=== PATIENT | male | born 1950 | race Caucasian/White ===

== ENCOUNTER → 2020-06-17 13:44 | Outpatient (CLI) | payer MEDICARE, MEDICAID, SELFPAY ==
--- NOTE | 2020-06-17 14:00 | CT_ITS ---
STUDY: CT CHEST WITH CONTRAST REASON FOR EXAM: Male, 69 years old. ABN CXR/NICOTINE DEPENDENCE RADIATION DOSAGE (If Supplied By Facility): CTDIvol = ( 8.93 ) mGy, DLP = ( 182.50 ) mGycm TECHNIQUE: Transaxial imaging was performed following intravenous administration of IV 100mL Isovue-300. Multiplanar coronal and sagittal images were reformatted. Individualized dose optimization techniques were used for this CT. COMPARISON: None. FINDINGS: Hyperinflation. Diffuse emphysematous changes with centrilobular emphysema. There is evidence of fibrocalcific scarring at the right lung apex. There is evidence of densely calcified pleural plaques of the left pleura. There are calcifications of the coronary arteries. Normal mediastinum. Normal hilar regions. Normal enhanced pulmonary arteries. There is atherosclerotic calcification of the aortic arch with tortuosity and elongation of the aortic arch and descending thoracic aorta. There is dilatation of the proximal descending thoracic aorta just distal to the arch with a transverse dimension of 3.9 cm. There are degenerative changes of the thoracic spine. There is no demonstrated abnormality of the visualized upper abdomen. CT/Chest WITH Contrast IMPRESSION: Hyperinflation and emphysematous changes with fibrocalcific scarring at the right lung apex. Left-sided calcified pleural plaques. Electronically Signed: Blade Roca MD at 15:07 EDT , Service support ,
[2020-06-17 14:06] LABS: CREATININE FINGERSTICK 0.8 mg/dL (0.70-1.30); EGFR FINGERSTICK > 60.0000 mL/min (>60)
== END ==
PROVIDERS: PCP Nurse Practitioner Adult Health; Referring Provider Nurse Practitioner Adult Health; Visit Provider Nurse Practitioner Adult Health
DX: R93.89 Abnormal findings on diagnostic imaging of other specified body structures (principal); F17.200 Nicotine dependence, unspecified, uncomplicated
CPT/HCPCS: 71260; Q9967; A4216

== ENCOUNTER → 2020-07-03 13:14 | Outpatient (CLI) | payer MEDICARE, MEDICAID, SELFPAY ==
[2020-06-25 10:40] VITALS: BMI 17.0
--- NOTE | 2020-07-03 13:15 | ECHOD_ITS ---
Reason For Study: ABN EKG Procedure This was a 2D Doppler, Color Flow transthoracic echocardiogram. The study was technically difficult. Due to COPD and body habitus. Exam performed in department. Left Ventricle Based upon the 2D echocardiographic images obtained there appears to be grossly normal left ventricular size, wall motion, and systolic function. The estimated ejection fraction is 55 %. No evidence for diastolic dysfunction. Right Ventricle Based upon the 2D echocardiographic images obtained there appears to be grossly normal right ventricular size and systolic function. Atria Normal left atrium. Normal right atrium. No doppler evidence for ASD. Mitral Valve There is no mitral annular calcification. Normal mitral valve. Mild (1+) mitral valve insufficiency. Tricuspid Valve Normal tricuspid valve. Trivial tricuspid valve insufficiency. Unable to estimate RV systolic pressure/pulmonary artery pressure due to technically difficult study. Aortic Valve Trisinus/trileaflet aortic valve. Mild diffuse aortic valve thickening. Pulmonic Valve The pulmonic valve is not well visualized. Great Vessels Normal sized aortic root. Pericardium/Pleural No pericardial effusion. MMode/2D Measurements & Calculations LVIDd: 4.5 cm IVSd: 0.75 cm Ao root diam: 3.3 cm LVIDs: 3.0 cm LVPWd: 0.70 cm LA dimension: 2.9 cm RVDd: 2.8 cm FS: 32.6 % LAV(MOD-bp): 23.1 ml LVAd ap4: 22.8 cm2 LVAd ap2: 23.3 cm2 LAV(MOD-bp) Indexed: 14.5 ml/m2 LVLd ap4: 7.1 cm LVLd ap2: 7.4 cm LAV(MOD-sp2): 20.5 ml EDV(MOD-sp4): 61.7 ml EDV(MOD-sp2): 62.1 ml LAV(MOD-sp4): 24.6 ml EDV(sp4-el): 61.9 ml EDV(sp2-el): 61.8 ml LVAs ap4: 13.4 cm2 LVAs ap2: 13.4 cm2 LVLs ap4: 5.9 cm LVLs ap2: 6.3 cm ESV(MOD-sp4): 24.9 ml ESV(MOD-sp2): 24.7 ml ESV(sp4-el): 25.7 ml ESV(sp2-el): 24.3 ml EF(MOD-sp4): 59.7 % EF(MOD-sp2): 60.3 % EF(sp4-el): 58.5 % SV(MOD-sp4): 36.9 ml SV(MOD-sp2): 37.5 ml SV(sp4-el): 36.2 ml LA dimension(2D): 2.9 cm LA A4 area: 10.7 cm2 RA A4 area: 9.7 cm2 Time Measurements MV dec time: 0.19 sec Doppler Measurements & Calculations MV E max yasmani: 67.4 cm/sec Lat Peak E' Yasmani: 11.0 cm/sec Med Peak E' Yasmani: 9.2 cm/sec MV A max yasmani: 54.0 cm/sec E/E' lat: 6.1 E/E' med: 7.4 MV E/A: 1.2 Ao V2 max: 85.9 cm/sec LV V1 max: 67.0 cm/sec PA V2 max: 63.3 cm/sec Ao max P.0 mmHg LV V1 max P.8 mmHg ECHO/Echo Complete Interpretation Summary The study was technically difficult. Based upon the 2D echocardiographic images obtained there appears to be grossly normal left ventricular size, wall motion, and systolic function. The estimated ejection fraction is 55 %. Mild (1+) mitral valve insufficiency. Trivial tricuspid valve insufficiency. Mild diffuse aortic valve thickening. Unable to estimate RV systolic pressure/pulmonary artery pressure due to techni marck difficult study. No evidence for diastolic dysfunction. Ordering Physician: Talha Doss Referring Physician: Natividad Baltazar Performed By: Shelia Cortez, RDCS, RVT
== END ==
PROVIDERS: PCP Nurse Practitioner Adult Health; Referring Provider Internal Medicine Cardiovascular Disease; Visit Provider Internal Medicine Cardiovascular Disease
DX: R94.31 Abnormal electrocardiogram [ECG] [EKG] (principal); J44.9 Chronic obstructive pulmonary disease, unspecified; F02.80 Dementia in other diseases classified elsewhere, unspecified severity, without behavioral disturbance, psychotic disturbance, mood disturbance, and anxiety
CPT/HCPCS: 93306

== ENCOUNTER → 2022-06-03 | Outpatient (CLI) | payer MEDICARE, MEDICAID, SELFPAY ==
--- NOTE | 2022-06-03 08:32 | CT_ITS ---
STUDY: LOW DOSE CT LUNG CANCER SCREENING REASON FOR EXAM: Male, 71 years old. TOBACCO USE. Patient smokes half a pack per day for 52 years. COPD. RADIATION DOSAGE (If Supplied By Facility): CTDIvol = ( 2.01 ) mGy, DLP = ( 66.95 ) mGycm TECHNIQUE: No contrast was administered. Low dose technique was utilized (average mAS-38 and kVp 120). 1.25 mm axial source images with a slice interval of 1.25-mm were reconstructed in lung windows. 2.5 mm axial source images with a slice interval of 2.5-mm were reconstructed in lung windows. 5.0 mm axial source images with a slice interval of 5.0-mm were reconstructed in soft tissue windows. COMPARISON: None. NODULES: No suspicious nodules are seen. Emphysema: Stable scarring at the right lung apex. Hyperinflation. Diffuse emphysematous changes worse in the upper lobes. Calcified pleural plaques bilaterally worse in the left hemithorax. There is been a progression of increased linear markings with areas of the bronchiectasis and subpleural blebs in the posterior medial segment of the left lower lobe suggestive of progressive scarring. There is also evidence of progressive scarring in the posterior medial segment of the right lower lobe. Endobronchial lesion: None Aorta: Atherosclerotic plaque formation of the aortic arch. There is dilatation of the posterior aspect of the aortic arch as it extends into the descending thoracic aorta with a transverse dimension of 3.9 cm. CORONARY ARTERIES: Coronary artery calcification is seen. Heart: Unremarkable. Pulmonary artery: Unremarkable. Mediastinal nodes: Small benign-appearing mediastinal lymph nodes. Other chest and abdominal findings: CT/Low Dose CT Lung Screening IMPRESSION: Lung-RADS category 2 - Continue annual screening with LDCT in 12 months. IMPORTANT NOTES FOR USE: ACR Lung-RADS Version 1.1 Assessment Categories Release Date: 2018 Category: Coded 0-4 bases on nodule(s) with highest degree of suspicion. Negative screen is defined as categories 1 and 2; a positive screen is defined as categories 3 and 4. Category 3 and 4A nodules that are unchanged on interval CT should be coded as category 2, and individuals returned to screening in 12 months. Category 4X: Category 3 or 4 nodules with additional imaging findings that increase the suspicion of lung cancer, such as spiculation, GGN that doubles in size in 1 year, enlarged lymph notes, etc. Category Modifiers: S (significant finding unrelated to lung cancer) Electronically Signed: Blade Roca MD at 15:03 EDT Reading Location ID and State: [facility] / [place] , Service support ,
== END | disposition home or self-care (01) ==
PROVIDERS: PCP Nurse Practitioner Adult Health; Referring Provider Nurse Practitioner Adult Health; Visit Provider Nurse Practitioner Adult Health
DX: E44.0 Moderate protein-calorie malnutrition (principal); Z12.2 Encounter for screening for malignant neoplasm of respiratory organs; F17.210 Nicotine dependence, cigarettes, uncomplicated
CPT/HCPCS: 71271

== ENCOUNTER 2024-01-23 12:47 | Inpatient (IN) | payer MEDICARE, MEDICAID, SELFPAY ==
[2024-01-23] VITALS (12 sets, daily range): BP systolic 89–117; BP diastolic 56–78; PULSE 73–109; RESP 15–20; TEMP 36–37; O2SAT 92–99; BMI 13.2; BMI 28.3
--- NOTE | 2024-01-23 14:10 | CT_ITS ---
EXAM: CT CERVICAL SPINE WITHOUT INTRAVENOUS CONTRAST CLINICAL INDICATION: trauma TECHNIQUE: Helically acquired images were obtained of the cervical spine without intravenous contrast. 2D reformatted images were reviewed. This CT exam was performed using one or more of the following dose reduction techniques: automated exposure control, adjustment of the mA and/or kV according to patient size, and/or use of iterative reconstruction technique. COMPARISON: No relevant prior studies available. FINDINGS: VERTEBRAE: See below. DISCS/SPINAL CANAL/NEURAL FORAMINA: There is disc space narrowing from C2 through C7. There is right bony neural foraminal narrowing at C5-6 and C6-7. SOFT TISSUES: Unremarkable. No prevertebral soft tissue swelling. LYMPH NODES: Unremarkable. No cervical adenopathy. LUNG APICES: Unremarkable as visualized. Clear. CT/Spine Cervical without Contras IMPRESSION: 1. No acute osseous abnormalities cervical spine. 2. Multilevel degenerative change with disc space narrowing and bony neural foraminal narrowing. Electronically Signed: Jn Mccallum MD at 15:24 EST ,
--- NOTE | 2024-01-23 14:10 | CT_ITS ---
EXAM: CT MAXILLOFACIAL WITHOUT INTRAVENOUS CONTRAST CLINICAL INDICATION: facial trauma TECHNIQUE: Helically acquired images were obtained of the face without intravenous contrast. This CT exam was performed using one or more of the following dose reduction techniques: automated exposure control, adjustment of the mA and/or kV according to patient size, and/or use of iterative reconstruction technique. COMPARISON: No relevant prior studies available. FINDINGS: BONES/JOINTS: There are fractures of the right and left nasal bones. There is a fracture of the anterior aspect of the nasal septum. No discrete lytic or blastic abnormalities. SOFT TISSUES: Unremarkable. No focal subcutaneous swelling. No discrete fluid collections. ORBITS: Unremarkable. Both globes are unremarkable. Extraocular muscles are normal. Retrobulbar fat appears unremarkable. SINUSES: There is total opacification of the left maxillary sinus. MASTOID AIR CELLS: Unremarkable as visualized. Clear. DENTAL: No acute findings. No periodontal osseous erosion. CT/Sinus/Facial Bone IMPRESSION: 1. Fractures of the nasal bones as well as the anterior nasal septum. 2. Total opacification of the left maxillary sinus likely due to chronic sinusitis. Electronically Signed: Jn Mccallum MD at 15:17 EST ,
--- NOTE | 2024-01-23 14:10 | CT_ITS ---
EXAM: CT HEAD WITHOUT INTRAVENOUS CONTRAST CLINICAL INDICATION: head trauma TECHNIQUE: Multiple axial images were obtained of the head without intravenous contrast. This CT exam was performed using one or more of the following dose reduction techniques: automated exposure control, adjustment of the mA and/or kV according to patient size, and/or use of iterative reconstruction technique. COMPARISON: No relevant prior studies available. FINDINGS: BRAIN AND EXTRA-AXIAL SPACES: There is enlargement of ventricular system and cortical sulci. There is hypoattenuation in the periventricular white matter. No intra- or extra-axial hemorrhage. No evidence of acute infarct. No intracranial mass or mass effect. There is preservation of the glynn/white matter interface. Posterior fossa structures are unremarkable. Basal cisterns are patent. BONES/JOINTS: There are fractures of the nasal bones. No discrete lytic or blastic abnormalities. SINUSES: There is total opacification of the left maxillary sinus. MASTOID AIR CELLS: Unremarkable. Clear. ORBITS: Visualized globes, extraocular muscles, optic nerves and retrobulbar fat appear unremarkable. CT/Brain/Head without Contrast IMPRESSION: 1. No acute intracranial abnormality. 2. Senescent change with small vessel ischemia. 3. Fractures of the nasal bones. Electronically Signed: Jn Mccallum MD at 15:18 EST ,
--- NOTE | 2024-01-23 14:12 | EX.ED.DYSGE1 ---
HPI History of Present Illness Chief Complaint: Confusion Informant: SNF Limited: dementia Narrative Narrative: Patient is a 73-year-old male with history of COPD, emphysema, dementia, cognitive communication deficits and failure to thrive presenting from assisted living at around [facility] for facial trauma. Patient per nursing report was found facedown in his room. It is not clear how long he was there but they think it was no more than an hour. He was seen normally this morning at breakfast. He is on have a lot of bleeding around his face as well as nose. They sent him in for further evaluation. The dance director is at the bedside who does not know a lot of the history of what happened today but states he looks a lot more gaunt, weaker and paler than normal. long term paperwork's notes that patient had a chest x-ray on 01/18/2024 for abnormal lung sounds decreased O2 sat, it is unclear what the results were of that or if he was started on any medications. [facility] Medical History Anemia Severe protein-calorie malnutrition Emphysema lung Tobacco use Anxiety and depression Alcohol abuse COPD (chronic obstructive pulmonary disease) Generalized anxiety disorder Sarcopenia Dementia in other diseases classified elsewhere without behavioral disturbance Home Medications ?Medication ?Instructions ?Recorded ?Last Taken ?Type cholecalciferol (vitamin D3) 50 50 mcg PO DAILY 06/24/20 Unknown History mcg (2,000 unit) capsule cyanocobalamin (vitamin B-12) 100 mcg IM QMONTH 06/24/20 Unknown History 1,000 mcg/mL injection kit hydroxyzine pamoate 25 mg capsule 25 mg PO Q8H PRN 06/24/20 Unknown History (Vistaril) loratadine 10 mg tablet (Claritin) 10 mg PO DAILY 06/24/20 Unknown History mirtazapine 7.5 mg tablet 15 mg PO QHS 06/24/20 Unknown History sertraline 50 mg tablet 75 mg PO DAILY 06/24/20 Unknown History propylene glycol 0.6 % eye drops 1 drp ophthalmic (eye) TID PRN 06/25/20 Unknown History (Systane Complete) Allergy/AdvReac Type Severity Reaction Status Date / Time No Known Allergies Allergy Verified 01/23/24 12:52 Surgical History History of hand surgery Social History household members: none and other details: Assisted living. Smoking Status: Current every day smoker tobacco type: cigarettes Smoking packs per day: 0.5 Smoking cigarettes per day: 10.0 alcohol intake: current substance use type: does not use caffeine: Yes Type: coffee Number of servings: 6 ROS ROS ED Review of Systems ROS Unobtainable: due to mental status EXAM Physical Exam Const Vital Signs: 01/23/24 12:48 01/23/24 13:47 01/23/24 14:00 Temperature 96.8 F L Temperature Source Temporal Pulse Rate 109 H 89 100 Pulse Rate [Lying] Pulse Rate [Sitting (for 1 minute prior to obtaining)] Respiratory Rate 18 18 Blood Pressure 97/62 116/63 97/61 Blood Pressure [Lying] Blood Pressure [Sitting (for 1 minute prior to obtaining)] Blood Pressure Mean 73 80 73 Blood Pressure Mean [Lying] Blood Pressure Mean [Sitting (for 1 minute prior to obtaining)] Pulse Ox 95 98 98 Oxygen Delivery Method Room Air Room Air 01/23/24 15:00 01/23/24 16:00 01/23/24 17:00 Temperature Temperature Source Pulse Rate 89 78 86 Pulse Rate [Lying] Pulse Rate [Sitting (for 1 minute prior to obtaining)] Respiratory Rate 15 Blood Pressure 107/73 105/71 96/66 Blood Pressure [Lying] Blood Pressure [Sitting (for 1 minute prior to obtaining)] Blood Pressure Mean 84 82 76 Blood Pressure Mean [Lying] Blood Pressure Mean [Sitting (for 1 minute prior to obtaining)] Pulse Ox 98 96 98 Oxygen Delivery Method Room Air 01/23/24 17:31 01/23/24 18:00 Temperature Temperature Source Pulse Rate 74 Pulse Rate [Lying] 73 Pulse Rate [Sitting (for 1 minute prior to obtaining)] 90 Respiratory Rate 16 Blood Pressure 102/74 Blood Pressure [Lying] 117/62 Blood Pressure [Sitting (for 1 minute prior to obtaining)] 89/56 L Blood Pressure Mean 83 Blood Pressure Mean [Lying] 80 Blood Pressure Mean [Sitting (for 1 minute prior to obtaining)] 67 Pulse Ox 99 Oxygen Delivery Method Positive cachectic and unkempt General Appearance ED: unkempt and cachectic Nutritional Appearance: cachectic HEENT Reports dry mucous membranes HEENT Narrative: Bilateral cerumen impaction shins present. Dried blood noted in the mouth as well as the nares. No nasal septal hematoma appreciated. Swelling and bruising noted at the bridge of the nose. Mouth ED: Yes dry mucous membranes Mouth: dry mucous membranes Eyes Eyes Narrative: Abnormal pupil on the left. Right pupil equally reactive. EOMI. General Eye ED: Negative for pale conjunctiva or scleral icterus Neck Neck Narrative: JVD present Chest Wall inspection of chest normal and palpation of chest normal Resp Resp Narrative: Coarse breath sounds throughout, no increased work of breathing Cardio regular rate and regular rhythm GI normal to inspection, nondistended, normoactive bowel sounds and non-tender Back/Spine Cervical Spine: Negative for cervical spine tenderness Thoracic Spine / Upper Back: Negative for thoracic spinal tenderness Lumbar Spine / Lower Back: Negative for lumbar spinal tenderness Extremity Extremity Narrative: Chronic appearing deformity and contracture of the right hand. Significant muscle wasting of the extremities. Neuro Neuro Narrative: No focal deficits appreciated. Patient is difficult time speaking or answering questions verbally but will nod yes and no appropriately or grunts to get his point across. Per dance director at the bedside she states that is pretty normal for him. Sensorium / Orientation: alert Motor Exam: general weakness Psych Appearance: unkempt Mood & Affect: Negative for depressed or anxious Skin Skin Narrative: Bruising noticed to the face mostly around the nose and periorbital area. There is a laceration that is gaping over the medial right eyebrow with surrounded crusted blood. MDM MDM MDM Narrative Medical decision making narrative: Patient evaluated for increased weakness as well as concerns of dehydration and fall. Patient was found on the ground at his nursing facility. He is signs of facial trauma. Patient is quite frail and contracted appearing. He clinically appears dehydrated. Differential includes intracranial hemorrhage, skull fracture, nasal bone fracture, infection, rhabdomyolysis, JOCY, failure to thrive, ACS, arrhythmia, hypovolemia, symptomatic anemia, electrolyte abnormality, pneumonia and UTI. Workup shows a mild leukocytosis of 12.7. He has a mild anemia of 12.0. There are no prior labs for comparison. Lactate is normal at 1.4. CK is normal. BMP shows mild hyponatremia and mild hypokalemia. Magnesium is added on which is normal. High sensitive troponin stable at 5 and 4. EKG is consistent with acute ischemia. He is not have any arrhythmia while in the emergency room. Urinalysis is mostly consistent with dehydration with 150 ketones and infection unlikely given no bacteria however there are 5-10 white blood cells. Chest x-ray viewed by myself as well as radiology does show focal retrocardiac opacity which could be developing right lower lobe pneumonia. Given that nursing facility recently reported acute cough and hypoxia will treat for commune acquired pneumonia with Rocephin and azithromycin. CT of the brain and cervical spine does not show any acute traumatic injuries however the CT of the face does show fracture of the nasal bone as well as the anterior nasal septum. Patient's face is cleaned out. Does not appear to be any laceration amenable to suture repair. Localized wound care applied. Orthostatics ordered and patient is significantly positive just from going from laying to standing. Is given further IV fluids. Will be admitted for treatment of pneumonia and hypovolemia/orthostasis. Case discussed with admitting physician, Dr. Snyder. Lab Data Attestation: I reviewed the patient's lab results. Labs: Laboratory Results - last 24 hr 01/23/24 01/23/24 01/23/24 13:10 14:15 16:21 WBC 12.7 H RBC 4.57 L Hgb 12.0 L Hct 37.6 L MCV 82.3 MCH 26.3 L MCHC 31.9 L RDW Std Deviation 43.4 RDW Coeff of Miles 14.7 H Plt Count 383 MPV 9.2 Immature Gran % (Auto) 0.600 Neut % (Auto) 78.0 H Lymph % (Auto) 12.9 L [place] % (Auto) 8.3 Eos % (Auto) 0.0 Baso % (Auto) 0.2 Absolute Neuts (auto) 9.9 H Absolute Lymphs (auto) 1.64 Nucleated RBC % 0 PT 15.9 H INR 1.3 APTT 33.2 Sodium 135 L Potassium 3.3 L Chloride 94 L Carbon Dioxide 31.0 Anion Gap 10 BUN 22 H Creatinine 0.49 L Estim Creat Clear Calc 45.32 Est GFR (MDRD) Af Amer 214 Est GFR (MDRD) Non-Af 177 BUN/Creatinine Ratio 44.9 H Glucose 105 Lactic Acid 1.4 Calcium 9.7 Phosphorus 3.4 Magnesium 1.9 Total Bilirubin 0.50 AST 15 ALT 13 L Alkaline Phosphatase 67 Total Creatine Kinase 78 Troponin I High Sens 5 4 Total Protein 7.2 Albumin 2.5 L Globulin 4.7 H Albumin/Globulin Ratio 0.5 L Urine Color Urine Clarity Urine pH Ur Specific [place] Urine Protein Urine Glucose (UA) Urine Ketones Urine Occult Blood Urine Nitrite Urine Bilirubin Urine Urobilinogen Ur Leukocyte Esterase Urine RBC Urine WBC Ur Squamous Epith Cells Amorphous Sediment Urine Bacteria Urine Mucus Urine Opiates Screen Urine Methadone Screen Ur Barbiturates Screen Ur Phencyclidine Scrn Ur Amphetamines Screen MDMA (Ecstasy) Screen U Benzodiazepines Scrn Urine Cocaine Screen U Cannabinoids Screen Ur Drug Screen Comment 01/23/24 17:55 WBC RBC Hgb Hct MCV MCH MCHC RDW Std Deviation RDW Coeff of [place] Plt Count MPV Immature Gran % (Auto) Neut % (Auto) Lymph % (Auto) [place] % (Auto) Eos % (Auto) Baso % (Auto) Absolute Neuts (auto) Absolute Lymphs (auto) Nucleated RBC % PT INR APTT Sodium Potassium Chloride Carbon Dioxide Anion Gap BUN Creatinine Estim Creat Clear Calc Est GFR (MDRD) Af Amer Est GFR (MDRD) Non-Af BUN/Creatinine Ratio Glucose Lactic Acid Calcium Phosphorus Magnesium Total Bilirubin AST ALT Alkaline Phosphatase Total Creatine Kinase Troponin I High Sens Total Protein Albumin Globulin Albumin/Globulin Ratio Urine Color Straw Urine Clarity Clear Urine pH 6.0 Ur Specific [place] 1.025 Urine Protein 30 H Urine Glucose (UA) Normal Urine Ketones 150 A* Urine Occult Blood 25 H Urine Nitrite Negative Urine Bilirubin 1 H Urine Urobilinogen 4 H Ur Leukocyte Esterase 100 H Urine RBC 0-5 SEEN Urine WBC 5-10 SEEN Ur Squamous Epith Cells 0-5 SEEN Amorphous Sediment 1+ URATE Urine Bacteria 0 SEEN Urine Mucus 0 SEEN Urine Opiates Screen POSITIVE H Urine Methadone Screen NEGATIVE Ur Barbiturates Screen NEGATIVE Ur Phencyclidine Scrn NEGATIVE Ur Amphetamines Screen NEGATIVE MDMA (Ecstasy) Screen NEGATIVE U Benzodiazepines Scrn POSITIVE H Urine Cocaine Screen NEGATIVE U Cannabinoids Screen NEGATIVE Ur Drug Screen Comment Radiography Diagnostic Testing: Clinical Impression(s) from Imaging Studies Brain CT 01/23/24 14:10 IMPRESSION: 1. No acute intracranial abnormality. 2. Senescent change with small vessel ischemia. 3. Fractures of the nasal bones. Electronically Signed: Jn Mccallum MD at 15:18 EST , Cervical Spine CT 01/23/24 14:10 IMPRESSION: 1. No acute osseous abnormalities cervical spine. 2. Multilevel degenerative change with disc space narrowing and bony neural foraminal narrowing. Electronically Signed: Jn Mccallum MD at 15:24 EST , Facial/Sinus 01/23/24 14:10 IMPRESSION: 1. Fractures of the nasal bones as well as the anterior nasal septum. 2. Total opacification of the left maxillary sinus likely due to chronic sinusitis. Electronically Signed: Jn Mccallum MD at 15:17 EST , Chest X-Ray 01/23/24 14:30 IMPRESSION: Pulmonary hyperinflation with emphysematous change. There is focal retrocardiac opacity which may represent developing right lower lobe pneumonia. Electronically Signed: Jn Mccallum MD at 15:22 EST , Rhythm Strip Rhythm Strip: Sinus Rhythm Rate: 73 Ectopy: None EKG Initial EKG: Attestation: I personally reviewed and interpreted this EKG as follows: Interpretation: Sinus Rhythm Comments: Normal sinus rhythm rate of 73 bpm Normal intervals Normal axis Normal ST segments Management Discussion w/another healthcare provider: Hospitalist Discharge Plan Dx/Rx/DC Orders Clinical Impression: Pneumonia, Dementia in other diseases classified elsewhere without behavioral disturbance, Fracture closed, nasal bone, Facial trauma, Orthostatic hypotension Disposition Disposition: Acute Care Hospital [facility] Discharge Date/Time: 01/23/24 18:51
[2024-01-23] MEDS: 0.9% Normal Saline (500mL Bag) 500 ML 1000 ML IV (14:17)
[2024-01-23 14:19] LABS: Absolute Lymphocyte Count 1.64 X10^3/uL (0.83-4.51); Absolute Neutrophil Count 9.9 X10^3/uL (2.0-7.7); Basophil# 0.02 X10^3/uL; Basophil% 0.2 % (0-1); Hematocrit 37.6 % (40-54); Lymphocyte # 1.64 X10^3/ul (0.83-4.51); Lymphocyte % 12.9 % (19-41); Mean Corp Hgb Conc 31.9 g/dL (32-36); Mean Corpuscular Hgb 26.3 pg (27.0-32.0); Mean Corpuscular Volume 82.3 fL (80-94); Mean Platelet Vol. 9.2 fl (6.2-12.0); Monocyte# 1.06 X10^3/uL; Monocyte% 8.3 % (0-10); NRBC Flagged by Analyzer 0 % (0-5); Neutrophil # 9.91 X10^3/uL (2.7-7.7); Platelet Count 383 K/mm3 (150-450); RBC Distribution Width CV 14.7 % (11.6-14.6); RBC Distribution Width SD 43.4 fl (35.1-43.9); Red Blood Count 4.57 M/mm3 (4.6-6.2); White Blood Count 12.7 K/mm3 (4.4-11.0)
--- NOTE | 2024-01-23 14:30 | RAD_ITS ---
EXAM: XR CHEST, 1 VIEW CLINICAL INDICATION: cough TECHNIQUE: Frontal view of the chest. COMPARISON: No relevant prior studies available. FINDINGS: LUNGS AND PLEURAL SPACES: There is hazy density in the left lung base which may represent atelectasis or early pneumonia. Lungs are hyperinflated. There are emphysematous changes. There is blunting of the costophrenic angles which may represent pleural effusion or scarring. No pneumothorax. HEART: Unremarkable. Cardiac silhouette not enlarged. MEDIASTINUM: Central airways and mediastinal contour are unremarkable. BONES/JOINTS: There are old healed right-sided rib fractures. SOFT TISSUES: Unremarkable. RAD/Chest 1 View (Portable) IMPRESSION: Pulmonary hyperinflation with emphysematous change. There is focal retrocardiac opacity which may represent developing right lower lobe pneumonia. Electronically Signed: Jn Mccallum MD at 15:22 EST ,
[2024-01-23 14:33] LABS: International Normalized Ratio 1.3; Prothrombin Time (Protime)PT. 15.9 SECONDS (11.7-14.9)
[2024-01-23 14:34] LABS: Partial Thromboplast Time 33.2 Seconds (24.1-36.2)
[2024-01-23 14:41] LABS: ALB/GLOB Ratio 0.5 RATIO (0.9-2.4); AST(SGOT) 15 U/L (15-37); Alanine Aminotransfer ALT/SGPT 13 U/L (16-61); Albumin, Serum 2.5 g/dL (3.2-5.0); Alkaline Phosphatase 67 U/L (45-117); Anion Gap 10 (5-15); BUN 22 mg/dL (7-18); BUN/Creat Ratio 44.9 RATIO (10-20); CPK Total, Creatine Kinase 78 U/L (39-308); Calcium,Total 9.7 mg/dL (8.5-10.1); Chloride 94 mmol/L (98-107); Creatinine, Serum 0.49 mg/dL (0.70-1.30); EST Glomerular Filtration Rate 177 mL/min (>60); Est Glom Filt Rate - Afr Amer 214 mL/min (>60); Estimated Creatinine Clearance 45.32 ml/min; Globulin 4.7 g/dL (2.2-4.2); Glucose 105 mg/dL (74-106); Potassium 3.3 mmol/L (3.5-5.1); Protein, Total 7.2 g/dL (6.4-8.2); Sodium Level 135 mmol/L (136-145); Troponin-I HS (w/2H Reflex) 5 pg/mL (3.0-78.0)
[2024-01-23 14:52] LABS: Lactic Acid 1.4 mmol/L (0.4-1.9)
[2024-01-23 16:15] LABS: Reflex Troponin-HS? (from REC) Y
[2024-01-23 16:44] LABS: Troponin-I HS 4 pg/mL (3.0-78.0)
--- NOTE | 2024-01-23 18:03 | PCM.HP.STD ---
HPI - General General Date of Admission: 01/23/24 Date of Service: 01/23/24 Chief Complaint: Confusion, recent abnormal CXR/hypoxia potentially, evident fall w/ facial trauma. 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 From nursing paperwork from facilities patient supposedly had an abnormal chest x-ray on 01/18/2024 and oxygen levels were potentially decreased but it is uncertain what course was taken following this. Workup in the ED included T96.8, heart rate 109, BP 97/62, respiratory rate 18, 95% room air with most recent repeat vitals heart rate 100, BP 97/61, respiratory rate 18, 98% room air, CBC with WBC 12.7, hemoglobin 12, MCV 82.3, platelets 323 with left shift, coags with PT 15.9 otherwise unremarkable, CMP with sodium 135, potassium 3.3, chloride 94, BUN/creatinine 22/0.49, hepatic profile not marked appearing, lactic acid 1.4, total creatinine kinase 78, troponin 5 with repeat delta 4, CXR COPD type changes as well as a focal retrocardiac opacity possibly developing right lower lobe pneumonia, CT brain no acute intracranial findings with senescent changes with small vessel ischemia, fractures of the nasal bone, CT cervical spine with multilevel degenerative changes with disc space narrowing and bony neural foraminal narrowing with no acute osseous abnormality of the cervical spine, CT sinus/facial fractures of the nasal bones as well as the anterior nasal septum, total opacification of left maxillary sinus likely due to chronic sinusitis, EKG with SR without acute evidence of ischemia. In the ED patient administered IV rocephin, IV azithromycin, IVFs. REPLACED BY [facility] Medical History Anemia Severe protein-calorie malnutrition Emphysema lung Tobacco use Anxiety and depression Alcohol abuse COPD (chronic obstructive pulmonary disease) Generalized anxiety disorder Sarcopenia Dementia in other diseases classified elsewhere without behavioral disturbance Home Medications ?Medication ?Instructions ?Recorded ?Last Taken ?Type cholecalciferol (vitamin D3) 50 50 mcg PO DAILY 06/24/20 Unknown History mcg (2,000 unit) capsule cyanocobalamin (vitamin B-12) 100 mcg IM QMONTH 06/24/20 Unknown History 1,000 mcg/mL injection kit hydroxyzine pamoate 25 mg capsule 25 mg PO Q8H PRN 06/24/20 Unknown History (Vistaril) loratadine 10 mg tablet (Claritin) 10 mg PO DAILY 06/24/20 Unknown History mirtazapine 7.5 mg tablet 15 mg PO QHS 06/24/20 Unknown History sertraline 50 mg tablet 75 mg PO DAILY 06/24/20 Unknown History propylene glycol 0.6 % eye drops 1 drp ophthalmic (eye) TID PRN 06/25/20 Unknown History (Systane Complete) Allergy/AdvReac Type Severity Reaction Status Date / Time No Known Allergies Allergy Verified 01/23/24 12:52 unable to obtain Surgical History History of hand surgery Social History household members: none and other details: Assisted living. Smoking Status: Current every day smoker tobacco type: cigarettes Smoking packs per day: 0.5 Smoking cigarettes per day: 10.0 alcohol intake: current substance use type: does not use caffeine: Yes Type: coffee Number of servings: 6 ROS Review of Systems ROS Unobtainable: due to encephalopathy and due to mental condition Vital Signs Vital Signs Vital Signs: 01/23/24 12:48 01/23/24 13:47 01/23/24 14:00 Temperature 96.8 F L Temperature Source Temporal Pulse Rate 109 H 89 100 Pulse Rate [Lying] Pulse Rate [Sitting (for 1 minute prior to obtaining)] Respiratory Rate 18 18 Blood Pressure 97/62 116/63 97/61 Blood Pressure [Lying] Blood Pressure [Sitting (for 1 minute prior to obtaining)] Blood Pressure Mean 73 80 73 Blood Pressure Mean [Lying] Blood Pressure Mean [Sitting (for 1 minute prior to obtaining)] Pulse Ox 95 98 98 Oxygen Delivery Method Room Air Room Air 01/23/24 15:00 01/23/24 16:00 01/23/24 17:00 Temperature Temperature Source Pulse Rate 89 78 86 Pulse Rate [Lying] Pulse Rate [Sitting (for 1 minute prior to obtaining)] Respiratory Rate 15 Blood Pressure 107/73 105/71 96/66 Blood Pressure [Lying] Blood Pressure [Sitting (for 1 minute prior to obtaining)] Blood Pressure Mean 84 82 76 Blood Pressure Mean [Lying] Blood Pressure Mean [Sitting (for 1 minute prior to obtaining)] Pulse Ox 98 96 98 Oxygen Delivery Method Room Air 01/23/24 17:31 01/23/24 18:00 Temperature Temperature Source Pulse Rate 74 Pulse Rate [Lying] 73 Pulse Rate [Sitting (for 1 minute prior to obtaining)] 90 Respiratory Rate 16 Blood Pressure 102/74 Blood Pressure [Lying] 117/62 Blood Pressure [Sitting (for 1 minute prior to obtaining)] 89/56 L Blood Pressure Mean 83 Blood Pressure Mean [Lying] 80 Blood Pressure Mean [Sitting (for 1 minute prior to obtaining)] 67 Pulse Ox 99 Oxygen Delivery Method Weight Weight: 87 lb 3.2 oz Body Mass Index (BMI) 13.2 Physical Exam Narrative Physical Examination: General: Awake, appears alert, difficulty answering orientation questions because of encephalopathy but also communication difficulties, unable to talk, will answer with grunting and some head nodding but does not often correlate, cachectic, disheveled, significant bruising of various stages all over the body including to the face, crusted blood on the face with right eyebrow laceration with no bleeding, crusted blood across the nasal region where he has his nasal fracture with no bleeding from there or from the naris. Skin: Normal color aside from significant evident very staged ecchymoses, abrasions as noted, altered skin turgor with evidence of dehydration, no icterus, no cyanosis, significant very staged ecchymoses, abrasions, laceration above the right eyebrow, crusting along the nasal bridge where fractures evident. HEENT: Trauma to the face as noted/NC, EOMI, PERRLA, dry MM, poor oral care, no carotid bruits or JVD noted. Lungs: Severely diminished, greater bases, left greater than right, coarse, mildly rhonchorous, no rales, ronchi or wheezing. Heart: Regular rate and rhythm; no gallop, rub audible. Abdomen: Soft, cachectic, NTTP, ND, hyperactive BS, + HM. Extremities: No cyanosis, clubbing, or edema, evident cachexia, muscle loss, fat loss, right hand deformity with listed previous hand surgery. Neurological: Awake, appears alert, difficulty answering orientation questions because of encephalopathy but also communication difficulties, unable to talk, will answer with grunting and some head nodding but does not often correlate, cognitive function decreased baseline with underlying dementia and cognitive interactive baseline disturbance, unclear exact baseline but per the daycare this is not his baseline, pupils equally reactive to light and accommodation, cranial nerves grossly appear normal but difficult exam, moving all 4 extremities spontaneously, strength severely globally decreased Psychiatric: Affect appears flat, ill-appearing, no acute evidence of depressive or anxiety feelings but per record does have underlying history. Results Lab / Micro Data 01/23/24 13:10 01/23/24 13:10 Labs: Laboratory Results - last 24 hr 01/23/24 13:10: WBC 12.7 H, RBC 4.57 L, Hgb 12.0 L, Hct 37.6 L, MCV 82.3, MCH 26.3 L, MCHC 31.9 L, RDW Std Deviation 43.4, RDW Coeff of Miles 14.7 H, Plt Count 383, MPV 9.2, Immature Gran % (Auto) 0.600, Neut % (Auto) 78.0 H, Lymph % (Auto) 12.9 L, [place] % (Auto) 8.3, Eos % (Auto) 0.0, Baso % (Auto) 0.2, Absolute Neuts (auto) 9.9 H, Absolute Lymphs (auto) 1.64, Nucleated RBC % 0, PT 15.9 H, INR 1.3, APTT 33.2, Sodium 135 L, Potassium 3.3 L, Chloride 94 L, Carbon Dioxide 31.0, Anion Gap 10, BUN 22 H, Creatinine 0.49 L, Estim Creat Clear Calc 45.32, Est GFR (MDRD) Af Amer 214, Est GFR (MDRD) Non-Af 177, BUN/Creatinine Ratio 44.9 H, Glucose 105, Calcium 9.7, Total Bilirubin 0.50, AST 15, ALT 13 L, Alkaline Phosphatase 67, Total Creatine Kinase 78, Troponin I High Sens 5, Total Protein 7.2, Albumin 2.5 L, Globulin 4.7 H, Albumin/Globulin Ratio 0.5 L 01/23/24 14:15: Lactic Acid 1.4 01/23/24 16:21: Troponin I High Sens 4 Imaging Radiology Impression Brain CT 01/23/24 14:10 IMPRESSION: 1. No acute intracranial abnormality. 2. Senescent change with small vessel ischemia. 3. Fractures of the nasal bones. Electronically Signed: Jn Mccallum MD at 15:18 EST Reading Location ID and State: [facility] / [place] Tel , Service support , Cervical Spine CT 01/23/24 14:10 IMPRESSION: 1. No acute osseous abnormalities cervical spine. 2. Multilevel degenerative change with disc space narrowing and bony neural foraminal narrowing. Electronically Signed: Jn Mccallum MD at 15:24 EST Reading Location ID and State: [facility] / [place] Tel , Service support , Facial/Sinus 01/23/24 14:10 IMPRESSION: 1. Fractures of the nasal bones as well as the anterior nasal septum. 2. Total opacification of the left maxillary sinus likely due to chronic sinusitis. Electronically Signed: Jn Mccallum MD at 15:17 EST Reading Location ID and State: [facility] / [place] Tel , Service support , Chest X-Ray 01/23/24 14:30 IMPRESSION: Pulmonary hyperinflation with emphysematous change. There is focal retrocardiac opacity which may represent developing right lower lobe pneumonia. Electronically Signed: Jn Mccallum MD at 15:22 EST Reading Location ID and State: [facility] / [place] Tel , Service support , Assessment & Plan Assessment/Plan (1) Pneumonia: PLAN: Plan The patient is a 73 y/o M who resides in an assisted living w/ PMHx: Prior chart documented EtOH abuse, Chronic COPD, Allergic rhinitis, Anxiety and Depression, Dementia unclear type with unclear behavioral disturbance history with associated cognitive communication deficits chronically, tobacco use, Chronic sarcopenia/severe protein calorie malnutrition who presents to the [facility] ED on 01/23/24 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 #1. Acute Encephalopathy secondary to Possible Aspiration Pneumonia with unfortunate potential associated mechanical fall as noted #2 with significant orthostasis, dehydration suspected complicated by #7: Will admit to [facility], maintain on oxygen with wean as tolerated to room air if supplementation is necessary, continue ATC budesonide, PRN albuterol, maintained on IV Zosyn given concern for aspiration with MRSA screen requested also, HOB, IS parameters w/ pending sputum cultures, full respiratory viral panel and urine antigens. Will maintain on aspiration and fall precautions. PT/OT/ST/case management consulted for discharge planning. #2. Mechanical fall likely associated with #1 as well as noted dehydration, orthostasis with acute fracture of the nasal bones as well as anterior nasal septum in addition to laceration above the right eyebrow: Presentation CT brain and CT cervical spine with no acute findings therefore patient cleared per ED, CT of the facial and sinus region however with noted fracture of the nasal bone as well as the anterior nasal septum. Fortunately creatinine kinase is not marked appearing. Will continue icing, antibiotics given number 1 for nasal bone open fracture and will need follow-up with ENT upon discharge. In regard to right eyebrow laceration it being cleaned in the ER and Steri-Strips will be applied. #3. Hyponatremia, suspected hypovolemic component with as noted orthostasis: Admission sodium 135, chloride 94, continue to hydrate, repeat orthostatics and CMP in AM, certainly must also consider chronic component given history and previous charting of alcohol abuse but unclear current ongoing intake level now. #4. Hypokalemia: Admission K+ 3.3, magnesium level requested, supplementation given, repeat level in AM. #5. Chart reported history EtOH Abuse: Unclear if patient is consuming alcohol still but denies daily usage but again difficult communication, UDS and ethyl alcohol level will be requested, to be cautious in the interim will maintain on CIWA protocol, MVI, thiamine and folic acid. Alcohol withdrawal certainly could be another reason for encephalopathy as well as pneumonia as noted above #1 but still uncertain intake history especially given dementia. #6. Chronic COPD with allergic rhinitis: Per current list not on any chronic regimen, maintain on ATC budesonide therapy, PRN albuterol, HOB, IS parameters, continue home loratadine regimen. #7. Dementia unclear type with unclear behavioral disturbance history with associated cognitive communication deficits chronically: Complicates presentation, per current list does not appear to be on any regimen, will maintain on fall precautions, PT/OT/case management consulted for discharge planning. #8. Chronic sarcopenia, severe protein calorie malnutrition: Likely contributed to given his underlying significant disease history especially underlying COPD with ongoing tobacco use with evident muscle loss, decrease strength and poor performance, nutrition consulted for recommendations. #9. Normocytic anemia, unclear chronicity: Admission hemoglobin 12, MCV 82.3, unclear baseline is no comparison, will obtain iron panel, ferritin, repeat CBC in AM. #10. Anxiety and depression: We will continue patient home sertraline, mirtazapine, hydroxyzine home regimen. #11. Tobacco Abuse: Encouraged cessation, inpatient consultation per RT, NR if desired. #12. Allergic rhinitis: We will continue patient home loratadine regimen. #13. DVT prophylaxis: Lovenox. #14. CODE status: Given patient underlying dementia and difficulty with communication to be cautious awaiting paperwork from his assisted living to ascertain his CODE STATUS. Charges/Coding Visit Charges Inpatient E&M: 96952 Init Hosp L3 Procedures Hospitalists Procedures: 95705 Advncd Care Plan 30 Min
[2024-01-23 18:07] LABS: Bacteria 0 SEEN /hpf (None Seen); Mucous, Urine 0 SEEN /hpf (<or=2+)
[2024-01-23] MEDS: Ceftriaxone 1 GM/50 ML BAG IV (18:24)
[2024-01-23 18:29] LABS: Color, Urine Straw (Yellow); Glucose, Dipstick Normal (Normal); Leukocyte Esterase-Dipstick 100 /ul (Negative); Nitrite-Dipstick Negative (Negative); Occult Blood-Urine 25 /ul (Negative); Protein-Dipstick 30 mg/dl (Negative); Specific Gravity, Urine 1.025 (1.002-1.030); Urine Clarity Clear (Clear); Urine Urobilinogen 4 mg/dl (Normal)
[2024-01-23 18:32] LABS: Urine Bilirubin Dipstick 1 mg/dL (Negative)
[2024-01-23 18:34] LABS: Ketone-Dipstick 150 mg/dl (Negative)
[2024-01-23] MEDS: Azithromycin 500 MG in Dextrose 5%-Water (250mL Bag) 250 ML 250 MG IV (18:39)
[2024-01-23 18:43] LABS: Amorphous Sediment 1+ URATE; Red Blood Cells-Urine 0-5 SEEN /hpf (0-5); Squamous Epithelial Cells - UA 0-5 SEEN /hpf (0-5); White Blood Cells 5-10 SEEN /hpf (0-5)
[2024-01-23 19:41] LABS: Magnesium 1.9 mg/dL (1.6-2.6); Phosphorus 3.4 mg/dL (2.5-4.9)
[2024-01-23 19:42] LABS: Amphetamine Urine VISTA NEGATIVE (<1000 ng/mL); Barbiturate Urine VISTA NEGATIVE (< 200 ng/mL); Benzodiazepine Urine VISTA POSITIVE (< 200 ng/mL); Cocaine Urine VISTA NEGATIVE (< 300 ng/mL); Ecstacy Urine VISTA NEGATIVE (< 500 ng/mL); Methadone Urine VISTA NEGATIVE (< 300 ng/mL); PCP Urine VISTA NEGATIVE (< 25 ng/mL); THC Urine VISTA NEGATIVE (< 50 ng/mL); Vista UDS pH Range 5
[2024-01-23] MEDS: 0.9% Normal Saline (1000mL) 1,000 ML 100 ML IV (19:51)
[2024-01-23 21:06] LABS: Alcohol, Blood (Medical)-Serum < 3.0 mg/dL
[2024-01-23] MEDS: Menthol/Lanolin/Calamine/Znox 113 GM Tube 1 APPLIC TOPICAL (21:09)
[2024-01-23] MEDS: Piperacil/Tazobactam 3.375 GM in 0.9% Normal Saline (50mL MB+) 50 ML IV (21:10)
[2024-01-24] VITALS (9 sets, daily range): BP systolic 102–131; BP diastolic 40–75; PULSE 57–101; RESP 16–18; TEMP 36.3–36.7; O2SAT 92–97; BMI 13.5
[2024-01-24] MEDS: Piperacil/Tazobactam 3.375 GM in 0.9% Normal Saline (50mL MB+) 50 ML IV ×3 (05:31→20:52)
[2024-01-24] MEDS: 0.9% Normal Saline (1000mL) 1,000 ML 100 ML IV (05:31)
[2024-01-24] MEDS: Budesonide Respules 0.5 MG/2 ML AMPUL.NEB. INHALATION (07:23)
[2024-01-24 07:42] LABS: Absolute Lymphocyte Count 2.22 X10^3/uL (0.83-4.51); Basophil# 0.03 X10^3/uL; Basophil% 0.3 % (0-1); Eosinophil# 0.01 X10^3/uL; Eosinophils% 0.1 % (0-5); Hematocrit 31.6 % (40-54); Hemoglobin 10.3 g/dL (13.0-16.5); Lymphocyte # 2.22 X10^3/ul (0.83-4.51); Lymphocyte % 19.8 % (19-41); Mean Corp Hgb Conc 32.6 g/dL (32-36); Mean Corpuscular Hgb 26.4 pg (27.0-32.0); Mean Platelet Vol. 9.1 fl (6.2-12.0); Monocyte# 0.88 X10^3/uL; Monocyte% 7.8 % (0-10); NRBC Flagged by Analyzer 0 % (0-5); Neutrophil # 8.02 X10^3/uL (2.7-7.7); Neutrophil % 71.5 % (47-70); Platelet Count 336 K/mm3 (150-450); RBC Distribution Width CV 14.7 % (11.6-14.6); White Blood Count 11.2 K/mm3 (4.4-11.0)
[2024-01-24] MEDS: Enoxaparin 40 MG/0.4 ML Syringe SC (07:59)
[2024-01-24 08:47] LABS: ALB/GLOB Ratio 0.6 RATIO (0.9-2.4); AST(SGOT) 17 U/L (15-37); Alanine Aminotransfer ALT/SGPT 12 U/L (16-61); Albumin, Serum 2.2 g/dL (3.2-5.0); Alkaline Phosphatase 58 U/L (45-117); Anion Gap 10 (5-15); BUN 17 mg/dL (7-18); BUN/Creat Ratio 53.8 RATIO (10-20); Calcium,Total 8.9 mg/dL (8.5-10.1); Chloride 104 mmol/L (98-107); Creatinine, Serum 0.32 mg/dL (0.70-1.30); EST Glomerular Filtration Rate 293 mL/min (>60); Est Glom Filt Rate - Afr Amer 355 mL/min (>60); Estimated Creatinine Clearance 46.52 ml/min; Globulin 3.9 g/dL (2.2-4.2); Glucose 79 mg/dL (74-106); Potassium 3.1 mmol/L (3.5-5.1); Protein, Total 6.1 g/dL (6.4-8.2); Sodium Level 139 mmol/L (136-145)
--- NOTE | 2024-01-24 09:31 | PCM.PN.HOSP ---
Subjective Subjective Challenging to communicate given his mumbling garbled speech Objective Data Objective Data Vital Signs: Vital Signs Temp Pulse Resp BP Pulse Ox O2 Del Method 98.1 F 66 16 108/61 92 Room Air 01/24/24 08:20 01/24/24 08:25 01/24/24 08:20 01/24/24 08:20 01/24/24 08:20 01/24/24 08:20 Oxygen Delivery Method Room Air Weight: 89 lb 8.123 oz Body Mass Index (BMI) 13.5 Intake & Output: Intake and Output for Last 24 Hours 01/23/24 01/24/24 01/25/24 03:59 03:59 03:59 Intake Total 855 / 855 966.67 / 966.67 Output Total 400 / 400 200 / 200 Balance 455 / 455 766.67 / 766.67 Lab / Micro Data 01/24/24 06:51 01/24/24 06:51 Labs: Laboratory Results - last 24 hr 01/23/24 13:10: WBC 12.7 H, RBC 4.57 L, Hgb 12.0 L, Hct 37.6 L, MCV 82.3, MCH 26.3 L, MCHC 31.9 L, RDW Std Deviation 43.4, RDW Coeff of Miles 14.7 H, Plt Count 383, MPV 9.2, Immature Gran % (Auto) 0.600, Neut % (Auto) 78.0 H, Lymph % (Auto) 12.9 L, [place] % (Auto) 8.3, Eos % (Auto) 0.0, Baso % (Auto) 0.2, Absolute Neuts (auto) 9.9 H, Absolute Lymphs (auto) 1.64, Nucleated RBC % 0, PT 15.9 H, INR 1.3, APTT 33.2, Sodium 135 L, Potassium 3.3 L, Chloride 94 L, Carbon Dioxide 31.0, Anion Gap 10, BUN 22 H, Creatinine 0.49 L, Estim Creat Clear Calc 45.32, Est GFR (MDRD) Af Amer 214, Est GFR (MDRD) Non-Af 177, BUN/Creatinine Ratio 44.9 H, Glucose 105, Calcium 9.7, Total Bilirubin 0.50, AST 15, ALT 13 L, Alkaline Phosphatase 67, Total Creatine Kinase 78, Troponin I High Sens 5, Total Protein 7.2, Albumin 2.5 L, Globulin 4.7 H, Albumin/Globulin Ratio 0.5 L 01/23/24 14:15: Lactic Acid 1.4 01/23/24 16:21: Phosphorus 3.4, Magnesium 1.9, Troponin I High Sens 4 01/23/24 17:55: Urine Color Straw, Urine Clarity Clear, Urine pH 6.0, Ur Specific [place] 1.025, Urine Protein 30 H, Urine Glucose (UA) Normal, Urine Ketones 150 A*, Urine Occult Blood 25 H, Urine Nitrite Negative, Urine Bilirubin 1 H, Urine Urobilinogen 4 H, Ur Leukocyte Esterase 100 H, Urine RBC 0-5 SEEN, Urine WBC 5-10 SEEN, Ur Squamous Epith Cells 0-5 SEEN, Amorphous Sediment 1+ URATE, Urine Bacteria 0 SEEN, Urine Mucus 0 SEEN, Urine Opiates Screen POSITIVE H, Urine Methadone Screen NEGATIVE, Ur Barbiturates Screen NEGATIVE, Ur Phencyclidine Scrn NEGATIVE, Ur Amphetamines Screen NEGATIVE, MDMA (Ecstasy) Screen NEGATIVE, U Benzodiazepines Scrn POSITIVE H, Urine Cocaine Screen NEGATIVE, U Cannabinoids Screen NEGATIVE, Ur Drug Screen Comment 01/23/24 20:15: Ethyl Alcohol < 3.0 01/24/24 06:51: WBC 11.2 H, RBC 3.90 L, Hgb 10.3 L, Hct 31.6 L, MCV 81.0, MCH 26.4 L, MCHC 32.6, RDW Std Deviation 43.0, RDW Coeff of Miles 14.7 H, Plt Count 336, MPV 9.1, Immature Gran % (Auto) 0.500, Neut % (Auto) 71.5 H, Lymph % (Auto) 19.8, [place] % (Auto) 7.8, Eos % (Auto) 0.1, Baso % (Auto) 0.3, Absolute Neuts (auto) 8.0 H, Absolute Lymphs (auto) 2.22, Nucleated RBC % 0, Sodium 139, Potassium 3.1 L, Chloride 104, Carbon Dioxide 25.0, Anion Gap 10, BUN 17, Creatinine 0.32 L, Estim Creat Clear Calc 46.52, Est GFR (MDRD) Af Amer 355, Est GFR (MDRD) Non-Af 293, BUN/Creatinine Ratio 53.8 H, Glucose 79, Calcium 8.9, Total Bilirubin 0.50, AST 17, ALT 12 L, Alkaline Phosphatase 58, Total Protein 6.1 L, Albumin 2.2 L, Globulin 3.9, Albumin/Globulin Ratio 0.6 L Micro: Microbiology 01/23/24 23:25 Urine, Random Legionella Antigen - Final 01/23/24 23:25 Urine, Random Streptococcus pneumoniae Antigen (M - Final 01/23/24 20:45 Nasal Secretion MRSA (PCR) - Final Radiography Diagnostic Testing: Radiology Impression Brain CT 01/23/24 14:10 IMPRESSION: 1. No acute intracranial abnormality. 2. Senescent change with small vessel ischemia. 3. Fractures of the nasal bones. Electronically Signed: Jn Mccallum MD at 15:18 EST , Cervical Spine CT 01/23/24 14:10 IMPRESSION: 1. No acute osseous abnormalities cervical spine. 2. Multilevel degenerative change with disc space narrowing and bony neural foraminal narrowing. Electronically Signed: Jn Mccallum MD at 15:24 EST , Facial/Sinus 01/23/24 14:10 IMPRESSION: 1. Fractures of the nasal bones as well as the anterior nasal septum. 2. Total opacification of the left maxillary sinus likely due to chronic sinusitis. Electronically Signed: Jn Mccallum MD at 15:17 EST , Chest X-Ray 01/23/24 14:30 IMPRESSION: Pulmonary hyperinflation with emphysematous change. There is focal retrocardiac opacity which may represent developing right lower lobe pneumonia. Electronically Signed: Jn Mccallum MD at 15:22 EST , Rhythm Strip Rhythm Strip: Sinus Rhythm Rate: 73 Ectopy: None Physical Exam Narrative General: Alert, Oriented x3, Cooperative, No apparent distress, temporal wasting cachectic HEENT: Atraumatic, PERRLA, EOMI, Normocephalic Oral: Moist Mucosa Neck: Supple, No JVD Lungs: Diminished, Normal air movement, No rhonchi, No wheeze, No rales Cardiovascular: Regular rate, Regular Rhythm, Normal S1, Normal S2, No murmurs Abdomen: Soft, Non Tender, Non-Distended, No Hepato-splenomegaly Extremities: No edema, Capillary Refill Less than 3 Seconds Skin: No rashes, No breakdown Musculoskeletal: No Tenderness to Palpation of Joints or Extremities Neurological: No focal neurological deficits, moves all extremities Psych/Mental Status: Flat Assessment & Plan Assessment/Plan (1) Pneumonia: PLAN: Plan 1. 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 Swallowing was compromised he was made n.p.o. and speech therapy was consulted and did a modified barium swallow demonstrated an enlarged base of the tongue so a CTA of the neck was obtained which shows a large 6 cm tongue that is invading the epiglottis with scattered enlarged lymph nodes ? Discussed with his son, and requesting transfer to [facility] ? Multiple facial injuries due to his mechanical fall, x-rays negative for fracture ? Continue with antibiotics for aspiration pending transfer to [facility] ? He is on CIWA protocol, son states that he is quit drinking for quite some time 2. Severe protein calorie malnutrition secondary to poor p.o. intake in the setting of head and neck cancer ? He will likely need a PEG tube if he wants to proceed with treatment ? Consult dietitian 3. Anxiety/depression ? Currently n.p.o. we will continue to monitor DVT: Lovenox Charges/Coding Visit Charges Inpatient E&M: 39425 Subs Hosp L2
[2024-01-24] MEDS: Menthol/Lanolin/Calamine/Znox 113 GM Tube 1 APPLIC TOPICAL ×2 (09:55→14:14)
--- NOTE | 2024-01-24 10:17 | RAD_ITS ---
STUDY: SWALLOWING STUDY REASON FOR EXAM: Male, 73 years old. Assess risk/presence of aspiration TECHNIQUE: The examination was performed with Speech Pathology in attendance. Under fluoroscopic observation, the patient ingested thin barium, thick barium, barium pudding, and barium coated cracker. FLUOROSCOPY TIME: 1.32 minutes/seconds RADIOLOGIST INVOLVEMENT: Radiologist was not present during the procedure, but did review the images. COMPARISON: CT of the cervical spine dated January 23, 2024 FINDINGS: Numerous dynamic fluoroscopic images of the larynx and swallowing mechanism and structures were obtained by the speech pathologist and presented to radiology for interpretation. The following was observed during swallowing of the various mixtures of barium: Various viscus/thickness consistency fluids and food contents were administered to the patient by the speech pathologist and then assess for laryngeal penetration, neeta aspiration, coating of the parapharyngeal structures, and dysphagia. Neeta aspiration, laryngeal penetration, and dysphagia was demonstrated with multiple fluid and food contents. The speech pathologist also documents having to suction the patient due to severe oropharyngeal dysphagia. RAD/Swallowing Function w/Video IMPRESSION: 1. Neeta aspiration, laryngeal penetration, and dysphagia was demonstrated with multiple fluid and food contents. The speech pathologist also documents having to suction the patient due to severe oropharyngeal dysphagia. 2. This is detailed on the speech pathologist''s report which should be reviewed by the referring service/physician. Recommendations are also included on the speech pathologist report. The swallow study findings were discussed with the patient by the speech pathologist at the conclusion of the examination. Please see speech pathology report for more information and recommendations. The procedure was performed by Monse Beltre MA under the direct supervision of Enrique Mueller M.D. Electronically Signed: Enrique Mueller MD at 16:25 EST ,
--- NOTE | 2024-01-24 10:49 | CT_ITS ---
EXAM: CT NECK WITH INTRAVENOUS CONTRAST CLINICAL INDICATION: Posterior pharynx mass with narrowed airway. JUST HAD BARIUM SWALLOW STUDY JUST BEFORE CT TECHNIQUE: Helically acquired images were obtained of the neck with intravenous contrast. This CT exam was performed using one or more of the following dose reduction techniques: automated exposure control, adjustment of the mA and/or kV according to patient size, and/or use of iterative reconstruction technique. CONTRAST: IV 75mL Isovue-370 COMPARISON: No relevant prior studies available. FINDINGS: NASOPHARYNX: The marked deviation of the nasal septum associated with chronic fractures of the nasal arch. SUPRAHYOID NECK: A large ulcerated mass involves the mid and posterior portion of the tongue measuring 5.7 x 5.4 x 5.4 cm. The lesion extends into the vallecula and appears to infiltrate the epiglottis. The oropharynx is markedly constricted by the mass. INFRAHYOID NECK: Larynx and trachea are normal. SUBMANDIBULAR/PAROTID GLANDS: Salivary glands are normal in size. THYROID: Atrophic in appearance. SINUSES: Left maxillary sinus is completely opacified. BONES/JOINTS: Moderate diffuse spondylosis of the cervical spine. SOFT TISSUES: Retropharyngeal soft tissues are normal. 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 LYMPH NODES: Enlarged necrotic cervical lymph nodes are seen bilaterally involving levels 2 and 3 measuring up to 2.4 cm in diameter. LUNG APICES: Extensive centrilobular emphysematous changes of the visualized lungs. Prominent calcific pleural plaquing noted bilaterally suggestive of asbestosis. CT/Soft Tissue Neck WITH Contrast IMPRESSION: 1. A large ulcerated mass involves the mid and posterior portion of the tongue measuring 5.7 x 5.4 x 5.4 cm. The lesion extends into the vallecula and appears to infiltrate the epiglottis. The oropharynx is markedly constricted by the mass. 2. Enlarged necrotic cervical lymph nodes are seen bilaterally involving levels 2 and 3 measuring up to 2.4 cm in diameter. 3. 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 4. Left maxillary sinus is completely opacified. 5. Extensive centrilobular emphysematous changes of the visualized lungs. (Pulmonary emphysema is an independent risk factor for lung cancer.) Electronically Signed: Nick Quinones MD at 12:49 EST ,
--- NOTE | 2024-01-24 11:09 | SP.MBSS_ITS ---
Modified Barium Swallow Patient Information Study Date: 01/24/24 Study Time: 10:20 Direct Billable Minutes: 113 Total Minutes procedure & reportin Diagnosis: PNA J18.9 Referring Physician: Brock Tobin Medical History: PMH from physician H&P: Prior chart documented EtOH abuse, Chronic COPD, Allergic rhinitis, Anxiety and Depression, Dementia unclear type with unclear behavioral disturbance history with associated cognitive communication deficits chronically, tobacco use, Chronic sarcopenia/severe protein calorie malnutrition. 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 From nursing paperwork, the patient supposedly had an abnormal chest x-ray on 01/18/2024 and oxygen levels were potentially decreased but it is uncertain what course was taken following this. In the ED work up, CXR revealed COPD type changes, as well as a focal retrocardiac opacity possibly developing right lower lobe pneumonia; CT brain no acute intracranial findings with senescent changes with small vessel ischemia, fractures of the nasal bone' CT cervical spine with multilevel degenerative changes with disc space narrowing and bony neural foraminal narrowing with no acute osseous abnormality of the cervical spine; CT sinus/facial fractures of the nasal bones as well as the anterior nasal septum, total opacification of left maxillary sinus likely due to chronic sinusitis. Pt was admitted to [facility] for management of PNA, facial trauma, and nasal fractures. He was referred for ST consult due to concerns for aspiration. BSE today recommended NPO w/ plan for MBSS prior to diet advancement due to concern for silent aspiration. Current Diet Ordered: NPO Dentition: Natural Teeth, Decay and Missing Teeth Penetration-Aspiration Scale Penetration-Aspiration Scale: OBJECTIVE ASSESSMENT OF SWALLOW FUNCTION (QUANTITATIVE ? PER TRIAL): PENETRATION / ASPIRATION SCALE (BOLTON): 1 = does not enter airway 2 = enters airway/above vocal folds/ejected 3 = enters airway/above vocal folds/not ejected 4 = enters airway/contacts vocal folds/ejected 5 = enters airway/contacts vocal folds/not ejected 6 = enters airway/below vocal folds/ejected 7 = enters airway/below vocal folds/not ejected despite effort 8 = enters airway/below vocal folds/no effort VIDEOFLOROSCOPIC SCALE SCORE (BOLTON): Grade I = aspiration of material that has penetrated into the laryngeal vestibule, intact cough reflex Grade II = aspiration < 10 % of the bolus, intact cough reflex Grade III = aspiration of < 10 % of the bolus, reduced cough reflex or aspiration of > 10 % of the bolus, intact cough reflex Grade IV = aspiration of > 10 % of the bolus, reduced cough reflex Penetration-Aspiration Scale Score Thin Liquid via teaspoon: Result: 2= enter airway/above vocal folds/ejected Thin Liquid via teaspoon Trial 2: Result: 5= enters airways/contacts vocal folds/not ejected Thin Liquid via small single sip: cup: Result: 8= enters airway/below vocal folds/no effort [place] Thick Liquid via small single sip: cup: Result: 3= enters airways/above vocal folds/not ejected Pudding via teaspoon: Result: 1= does not enter airway Comment: [employer] had to Yankauer suction much of the barium from the tongue base. Thin Liquid via teaspoon Trial 3: Comment: AP view. No PAS score. Unilateral pharyngeal contraction with the bolus spilling down the R side of the pharynx only prior to the swallow. Oral Phase Labial Seal: No Labial Escape Tongue Control During Bolus Hold: Posterior escape of less than half of bolus Bolus Transport/Lingual Motion: Repetitive/disorganized tongue motion Oral Residue: Residue collection on oral structures Pharyngeal Phase Initiation of Pharyngeal Swallow: Bolus head in pyriforms Soft Palate Elevation: Escape to nasopharynx Laryngeal Elevation: Partial superior movement thyroid cart/partial apprx aryt- epig petiole Anterior Hyoid Excursion: Partial anterior movement Laryngeal Vestibule Closure at Height of Swallow: Incomplete; narrow column of air/contrast in laryngeal vestibule Pharyngeal Stripping Wave: Absent Pharyngoesophageal Segment Opening: Parital distension and partial duration; parital obstruction of flow Tongue Base Retraction: No visible posterior motion of tongue base (Minimal TB retraction) Pharyngeal Residue: Majority of contrast within or on pharyngeal structures Diagnosis/Impression Diagnosis: Severe oropharyngeal dysphagia R13.12 Impression: The patient presents w/ irregular textured, bulging tongue base (visualized w/ flashlight during oropharyngeal suctioning during study, as well) w/ the bulging appearance extending down into the anterior pharynx almost extending to the arytenoids w/ a small space of air between the bulging, mass-like appearance and the arytenoids. Bulging appearance also extends into the laryngeal vestibule. [employer] suspects this abnormality is unilateral along the patient's L side of the pharynx due to AP view findings. See image below for abnormal oropharyngeal findings. Additionally, the epiglottis is unable to be visualized. [employer] reviewed imaging w/ Dr. Tobin and voiced concern for poor airway opening as their is little space between bulging mass-like structure and the arytenoids. The oral phase is primarily marked by... -Decreased bolus control w/ premature posterior loss of <1/2 of thin liquid by cup to the pyriforms prior to swallow onset. -Repetitive, disorganized tongue motion for A-P transport. -Mild oral residues. The pharyngeal phase is primarily marked by... -No pharyngeal stripping wave and minimal TB retraction w/ severe pharyngeal residue of pudding w/ minimal pharyngeal clearance each swallow (pt attempted multiple swallows to clear). [employer] utilized Yankauer suction to clear majority of pudding barium from the oropharynx. During suctioning, [employer] visualized raised, irregular-textured bumps on tongue base bilaterally w/ min bright red blood suctioned - [employer] informed hospitalist, Dr. Tobin. -Decreased airway closure during the swallow w/ SILENT aspiration of thin liquids. CP bar at the level of C7, which did not appear to impact bolus clearance through the UES. Recommendations Diet: NPO (Ok for ice chips/tsp of water after oral care) Need for Skilled Speech Therapy Services: Yes Comment: Recommend FEES in upcoming sessions. Details ST treatment TBD pending findings of neck CT and ENT consult. [employer] is anticipating need for alternative means of nutrition/hydration given severity of dysphagia. Recommended Referrals: ENT Consult (Recommend endoscopy to visualize concerns for abnormal oropharyngeal findings) Education Completed: 1. Described result of evaluation. and 7. Pt requires further education on strategies & risks. Status Active ST Patient: Active Contact Information [facility] Speech Therapy:: Monse Beltre M.A. [facility]? Speech-Language Pathologist?? [facility] [address] [place] [address]? [email or web address]?? [phone]
--- NOTE | 2024-01-24 11:27 | CASEMGMT ---
Discharge Planning Pt states that if able, he would like to return to [facility]. SW updated. Mahi Lowry DC Planning Asst.
--- NOTE | 2024-01-24 13:08 | CASEMGMT ---
[facility] as follows: [facility], [place], [facility], [facility], [facility], [facility], [facility], [facility], [facility], [facility]), and . Mahi Lowry, Discharge Planning Asst.
--- NOTE | 2024-01-24 14:08 | CASEMGMT ---
Discharge Planning [facility] notified that pt will be transferred out. Asked for emergency contacts. Pts son added to our records. Nursing, SW, and physician updated. aMhi Lowry DC Planning Asst.
--- NOTE | 2024-01-25 01:19 | NURSING ---
REPORT CALLED TO [facility]. PT WILL GO TO G91, BED 14
[2024-01-25 01:33] VITALS: PULSE 76
--- NOTE | 2024-01-25 02:26 | NURSING ---
PT DOES NOT WANT HIS SON NOTIFIED AT THIS HOUR, HE PREFERS WE CALL AROUND [phone]. WILL LEAVE A NOTE AT CHARGE DESK
--- NOTE | 2024-01-26 07:12 | DS.PCM_ITS ---
Providers Date of Admission: 01/23/24 Date of Discharge: 01/25/24 Primary Care Physician: Natividad Baltazar, [employer]ER-C Reason For Visit: PNA, MECHANICAL FALL Diagnosis Discharge Diagnosis (1) Pneumonia: Status: Acute Code(s): J18.9 - Pneumonia, unspecified organism Medications at Discharge Home Medications cholecalciferol (vitamin D3) 50 mcg (2,000 unit) capsule 50 mcg PO DAILY 06/24/20 cyanocobalamin (vitamin B-12) 1,000 mcg/mL injection kit 100 mcg IM QMONTH 06/24/20 hydroxyzine pamoate 25 mg capsule (Vistaril) 25 mg PO Q8H PRN 06/24/20 loratadine 10 mg tablet (Claritin) 10 mg PO DAILY 06/24/20 mirtazapine 7.5 mg tablet 15 mg PO QHS 06/24/20 sertraline 50 mg tablet 75 mg PO DAILY 06/24/20 propylene glycol 0.6 % eye drops (Systane Complete) 1 drp ophthalmic (eye) TID PRN 06/25/20 Hospital Course Operations None Procedures None Summary of Care Provided Hospital Course: Per HPI: The patient is a 73 y/o M who resides in an assisted living w/ PMHx: Prior chart documented EtOH abuse, Chronic COPD, Allergic rhinitis, Anxiety and Depression, Dementia unclear type with unclear behavioral disturbance history with associated cognitive communication deficits chronically, tobacco use, Chronic sarcopenia/severe protein calorie malnutrition who presents to the [facility] ED on 01/23/24 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 From nursing paperwork from facilities patient supposedly had an abnormal chest x-ray on 01/18/2024 and oxygen levels were potentially decreased but it is uncertain what course was taken following this. Workup in the ED included T96.8, heart rate 109, BP 97/62, respiratory rate 18, 95% room air with most recent repeat vitals heart rate 100, BP 97/61, respiratory rate 18, 98% room air, CBC with WBC 12.7, hemoglobin 12, MCV 82.3, platelets 323 with left shift, coags with PT 15.9 otherwise unremarkable, CMP with sodium 135, potassium 3.3, chloride 94, BUN/creatinine 22/0.49, hepatic profile not marked appearing, lactic acid 1.4, total creatinine kinase 78, troponin 5 with repeat delta 4, CXR COPD type changes as well as a focal retrocardiac opacity possibly developing right lower lobe pneumonia, CT brain no acute intracranial findings with senescent changes with small vessel ischemia, fractures of the nasal bone, CT cervical spine with multilevel degenerative changes with disc space narrowing and bony neural foraminal narrowing with no acute osseous abnormality of the cervical spine, CT sinus/facial fractures of the nasal bones as well as the anterior nasal septum, total opacification of left maxillary sinus likely due to chronic sinusitis, EKG with SR without acute evidence of ischemia. In the ED patient administered IV rocephin, IV azithromycin, IVFs. Hospital Course: 1. 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 Swallowing was compromised he was made n.p.o. and speech therapy was consulted and did a modified barium swallow demonstrated an enlarged base of the tongue so a CTA of the neck was obtained which shows a large 6 cm tongue that is invading the epiglottis with scattered enlarged lymph nodes ? Discussed with his son, and requesting transfer to [facility] ? Multiple facial injuries due to his mechanical fall, x-rays negative for fracture ? Continue with antibiotics for aspiration ? He is on CIWA protocol, son states that he is quit drinking for quite some time ? He was accepted to [facility] and was transferred in the morning prior to my evaluation 2. Severe protein calorie malnutrition secondary to poor p.o. intake in the setting of head and neck cancer ? He will likely need a PEG tube if he wants to proceed with treatment ? Consult dietitian 3. Anxiety/depression ? Currently n.p.o. we will continue to monitor DVT: Lovenox Weight / BMI Weight Weight: 89 lb 8.123 oz Body Mass Index (BMI) 13.5 ABG / Lab / Microbiology Data 01/24/24 06:51 01/24/24 06:51 Microbiology: Microbiology 01/23/24 23:25 Urine, Random Legionella Antigen - Final 01/23/24 23:25 Urine, Random Streptococcus pneumoniae Antigen (M - Final 01/23/24 20:45 Nasal Secretion MRSA (PCR) - Final D/C Instructions DC O2, CPAP, BIPAP Needs Additional Home O2 Discharge instructions: No DC home with Oxygen: No Meaningful Use Info Meaningful Use Meaningful Use Diagnoses (Choose all that apply): None applicable Ischemic Stroke Statin Dosing Therapy Reference: STATIN DOSE THERAPY REFERENCE: * Patients > 75 years receive moderate or high dose statin therapy. * Patients 75 years or YOUNGER should receive HIGH intensity statin dose unless contraindicated. You will be required to document reason for non-treatment if statin daily dose does not meet guidelines. HIGH DOSE STATIN THERAPY DAILY Atorvastatin > than or = to 40 mg Rosuvastatin > than or = to 20 mg Amlodipine + Atorvastatin > than or = to 2.5/40 mg Ezetimibe + Simvastatin 10/80 mg Simvastatin 80mg Discharge Plan Admission Admit Date/Time: 01/23/24 18:07 Attending Provider: Brock Tobin Primary Care Provider: Natividad Baltazar NP Consulting Providers: Taylor Snyder Discharge Orders/Prescriptions Prescriptions: No Action Systane Complete 0.6 % drops 1 drp ophthalmic (eye) TID PRN hydroxyzine pamoate [Vistaril] 25 mg capsule 25 mg PO Q8H PRN loratadine [Claritin] 10 mg tablet 10 mg PO DAILY cyanocobalamin (vitamin B-12) 1,000 mcg/mL kit 100 mcg IM QMONTH cholecalciferol (vitamin D3) 50 mcg (2,000 unit) capsule 50 mcg PO DAILY mirtazapine 7.5 mg tablet 15 mg PO QHS sertraline 50 mg tablet 75 mg PO DAILY Referrals / Follow Up: Natividad Baltazar [employer]AW TAILER, [employer]C [Primary Care Provider] - Disposition Disposition (needs filled in before D/C Order can be placed): DC/Tx to Another Type of HCF
== END 2024-01-25 03:45 | disposition other institution (70) | DRG 177 ==
LOC: ED 18:30 → MS3 18:47
PROVIDERS: Admitting Provider Family Medicine; Emergency Provider Emergency Medicine; PCP Nurse Practitioner Adult Health; Visit Provider Family Medicine
DX: J69.0 Pneumonitis due to inhalation of food and vomit (principal); E43 Unspecified severe protein-calorie malnutrition; G93.41 Metabolic encephalopathy; F03.918 Unspecified dementia, unspecified severity, with other behavioral disturbance; E87.1 Hypo-osmolality and hyponatremia; Z68.1 Body mass index [BMI] 19.9 or less, adult; F10.97 Alcohol use, unspecified with alcohol-induced persisting dementia; C76.0 Malignant neoplasm of head, face and neck; D64.9 Anemia, unspecified; E86.0 Dehydration; J44.9 Chronic obstructive pulmonary disease, unspecified; F17.210 Nicotine dependence, cigarettes, uncomplicated; J30.9 Allergic rhinitis, unspecified; E87.6 Hypokalemia; I95.1 Orthostatic hypotension; F41.8 Other specified anxiety disorders; F03.90 Unspecified dementia, unspecified severity, without behavioral disturbance, psychotic disturbance, mood disturbance, and anxiety; W19.XXXA Unspecified fall, initial encounter; S02.2XXA Fracture of nasal bones, initial encounter for closed fracture
CPT/HCPCS: 36415; 70450; 70486; 70491; 71045; 72125; 74230; 80053; 80307; 81001; 82077; 82550; 83605; 83735; 84100; 84484; 85025; 85610; 85730; 87449; 87633; 87641; 92610; 92611; 93005; 94640; 94668; 97162; 97166; 97802; 99285; 99406; J7030; J7040; Q9967; A4216